=== PATIENT | female | born 2005 | race Caucasian/White ===

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

== ENCOUNTER 2024-10-26 19:10 | Emergency (ER) | payer OTHER ==
[~2024-10-26] VITALS: Ht 154.9 cm; Wt 72.6 kg
[~2024-10-26 19:10] MED LIST changes: +DOXYLAMINE-PYR1 EAC1 PO; +PROMETHAZINE12.5 M1 PO
[2024-10-26 19:18] VITALS: BP 120/78
== END 2024-10-26 20:18 | disposition home or self-care (01) ==
LOC: ER 19:10
DX: O9A.213 Injury, poisoning and certain other consequences of external causes complicating pregnancy, third trimester (principal); R10.30 Lower abdominal pain, unspecified; Z3A.00 Weeks of gestation of pregnancy not specified; W18.30XA Fall on same level, unspecified, initial encounter
CPT/HCPCS: 99284

== ENCOUNTER → 2024-10-30 | Outpatient (CLI) | payer OTHER | LOC: LAB SHORT 15:00 → LAB 15:00 | DX: O09.90 Supervision of high risk pregnancy, unspecified, unspecified trimester (principal); Z3A.00 Weeks of gestation of pregnancy not specified | CPT/HCPCS: 87081; 87150 ==

== ENCOUNTER 2024-11-20 08:00 | Inpatient (IN) | payer OTHER ==
[2024-11-20] VITALS (18 sets, daily range): BP systolic 113–177; BP diastolic 63–97
[~2024-11-20] VITALS: Ht 154.9 cm; Wt 74.4 kg
[2024-11-20] MEDS ORDERED: FentaNYL Citrate 50 MCG/ML 2 ML Injection IV PRN (08:20)
[2024-11-20] MEDS ORDERED: ePHEDrine Sulfate 50 MG/ML 1ML Injection XX PRN (08:25)
[2024-11-20] MEDS ORDERED: Methylergonovine Maleate 0.2MG / ML 1ML Amp IM PRN ×2 (08:25→09:50)
[2024-11-20] MEDS ORDERED: Ondansetron HCl 2 MG / ML 2ML Vial IV PRN (08:25)
[2024-11-20] MEDS ORDERED: OXYTOCIN/RINGER'S LACTATE 500 ML IV PRN (08:25)
[2024-11-20] MEDS ORDERED: Tranexamic Acid 100 ML IV SCH (08:25)
[2024-11-20] MEDS ORDERED: Calcium Carbonate 500 MG Tab Chew PO SCH (08:25)
[2024-11-20] MEDS ORDERED: Misoprostol 200 MCG Tab BC PRN (08:25)
[2024-11-20] MEDS ORDERED: Lactated Ringer's 1,000 ML IV PRN (08:25)
[2024-11-20] MEDS ORDERED: Lactated Ringer's 1,000 ML IV SCH ×3 (08:25→09:50)
[2024-11-20] MEDS ORDERED: FentaNYL 2mcg/ml-Bup 0.1% Epd 250 ML EPI PRN (08:25)
[2024-11-20] MEDS ORDERED: Misoprostol 200 MCG Tab PR PRN (08:25)
[2024-11-20] MEDS ORDERED: Acetaminophen 500 MG Tab PO PRN (08:25)
[2024-11-20] MEDS ORDERED: Oxytocin 10 Unit / ML Vial IM PRN (08:25)
[2024-11-20] MEDS ORDERED: Carboprost Tromethamine 250 MCG/ML 1ML Amp IM PRN (08:25)
[2024-11-20] MEDS ORDERED: OXYTOCIN/RINGER'S LACTATE 500 ML IV ONE (08:28)
[2024-11-20 08:39] LABS: BASOPHILS ABSOLUTE AUTO 0.04 K/mm3 (0.00-0.23); BASOPHILS PERCENT AUTO 0 % (0-2); EOSINOPHILS ABSOLUTE AUTO 0.05 K/mm3 (0.00-0.68); EOSINOPHILS PERCENT AUTO 0 % (0-6); Hematocrit 35.3 % (33.0-51.0); Hemoglobin 11.3 g/dL (11.5-16.0); IMMATURE GRAN ABSOLUTE AUTO 0.04 K/mm3 (0.00-0.10); IMMATURE GRAN PERCENT AUTO 0 % (0-1); LYMPHOCYTES ABSOLUTE AUTO 3.31 K/mm3 (0.84-5.20); LYMPHOCYTES PERCENT AUTO 29 % (21-46); MONOCYTES ABSOLUTE AUTO 0.87 K/mm3 (0.16-1.47); MONOCYTES PERCENT AUTO 8 % (4-13); Mean Corpuscular Volume 75 fL (80-100); Mean Platelet Volume 10.8 fL (9.1-12.4); NEUTROPHILS ABSOLUTE AUTO 6.98 K/mm3 (1.96-9.15); NEUTROPHILS PERCENT AUTO 62 % (41-73); Platelet Count 335 K/mm3 (150-400); RDW Coefficient Variation 15.3 % (11.7-14.2); RDW Standard Deviation 40.9 fL (35.1-46.3); White Blood Cell Count 11.29 K/mm3 (4.00-11.30)
[2024-11-20] MEDS ORDERED: Acetaminophen 325 MG TABLET PO PRN (09:45)
[2024-11-20] MEDS ORDERED: Docusate Sodium 100 MG Cap PO PRN (09:45)
[2024-11-20] MEDS ORDERED: Lanolin Cream TOP PRN (09:50)
[2024-11-20] MEDS ORDERED: Witch Hazel/Glycerin PADS TOP PRN (09:50)
[2024-11-20] MEDS ORDERED: Ibuprofen 400 MG Tab PO PRN (09:50)
[2024-11-20] MEDS ORDERED: Benzocaine Topical Anesthetic Spray 60GM TOP PRN (09:50)
[2024-11-20] MEDS ORDERED: FLU VACC TS2024-25(6MOS UP)/PF 45 MCG/0.5 ML SYRINGE IM SCH (09:50)
[2024-11-20] MEDS ORDERED: Oxytocin 10 Unit / ML Vial IM ONE (09:55)
[2024-11-20] MEDS ORDERED: OXYTOCIN/RINGER'S LACTATE 500 ML IV SCH (09:55)
--- NOTE | 2024-11-20 10:58 | NUR ---
UP SHOWERED BED CHANGED
[2024-11-21 03:48] VITALS: BP 114/58
[2024-11-21] MEDS ORDERED: Prenatal Vit/FE Fumarate/FA 1 Tab PO SCH (09:00)
[2024-11-21 09:09] VITALS: BP 130/75
--- NOTE | 2024-11-21 11:18 | NUR ---
1000 discharge instructions given. parents denie any further questions or concerns. 1106, hugs removed and bands matched. all vitals for mother and within normal limits at discharge.,
[2024-11-21 11:27] VITALS: BP 127/83
== END 2024-11-21 11:30 | disposition home or self-care (01) | DRG 807 ==
LOC: OBS 08:00 → BC 08:04 → OBS 08:15 → BC 08:17
PROVIDERS: ADMIT Advanced Practice Midwife
PROC: 10E0XZZ Delivery of Products of Conception, External Approach (ICD-10-PCS; principal; 2024-11-20)
DX: O99.334 Smoking (tobacco) complicating childbirth (principal); Z37.0 Single live birth; F17.200 Nicotine dependence, unspecified, uncomplicated; Z3A.39 39 weeks gestation of pregnancy; F12.90 Cannabis use, unspecified, uncomplicated; O69.81X0 Labor and delivery complicated by cord around neck, without compression, not applicable or unspecified
CPT/HCPCS: 36415; 85025; 86850; 86900; 86901; A9270

== ENCOUNTER 2025-10-25 08:55 | Emergency (ER) | payer OTHER ==
[~2025-10-25] VITALS: Ht 154.9 cm; Wt 65.8 kg
[2025-10-25] MEDS ORDERED: NS 1,000 ML IV SCH (09:40)
[2025-10-25] MEDS ORDERED: Ondansetron HCl 2 MG / ML 2ML Vial IV ONE (09:45)
[2025-10-25] MEDS ORDERED: Ketorolac Tromethamine 15mg Vial IV ONE (09:45)
[2025-10-25 09:57] LABS: BASOPHILS ABSOLUTE AUTO 0.05 K/mm3 (0.00-0.23); BASOPHILS PERCENT AUTO 1 % (0-2); EOSINOPHILS ABSOLUTE AUTO 0.07 K/mm3 (0.00-0.68); EOSINOPHILS PERCENT AUTO 1 % (0-6); Hematocrit 39.1 % (33.0-51.0); Hemoglobin 13.2 g/dL (11.5-16.0); IMMATURE GRAN ABSOLUTE AUTO 0.01 K/mm3 (0.00-0.10); IMMATURE GRAN PERCENT AUTO 0 % (0-1); LYMPHOCYTES ABSOLUTE AUTO 2.07 K/mm3 (0.84-5.20); LYMPHOCYTES PERCENT AUTO 34 % (21-46); MONOCYTES ABSOLUTE AUTO 0.54 K/mm3 (0.16-1.47); MONOCYTES PERCENT AUTO 9 % (4-13); Mean Corpuscular HGB Conc 33.8 g/dL (31.5-36.5); Mean Corpuscular Volume 84 fL (80-100); NEUTROPHILS ABSOLUTE AUTO 3.29 K/mm3 (1.96-9.15); NEUTROPHILS PERCENT AUTO 55 % (41-73); NRBC ABSOLUTE 0.00 K/mm3 (0.00-0.02); NRBC Auto 0.0 /100 WBC (0.0-0.2); Platelet Count 275 K/mm3 (150-400); RDW Coefficient Variation 14.3 % (11.7-14.2); RDW Standard Deviation 44.0 fL (35.1-46.3)
[2025-10-25 10:19] LABS: Alanine Aminotransfer (ALT/SGP 83 U/L (12-78); Albumin, Blood 3.7 g/dL (3.4-5.0); Albumin/Globulin Ratio 1.0 (0.8-1.8); Anion Gap 7 mmol/L (3-11); Aspartate Aminotrans (AST/SGOT 29 U/L (12-37); Beta HCG, Quantitative, Serum <1 mIU/mL (0-3); Bilirubin, Total 0.4 mg/dL (0.1-1.0); Blood Urea Nitrogen 9 mg/dL (8-24); CO2, Blood 24 mmol/L (21-32); Calcium, Blood 9.0 mg/dL (8.5-10.1); Chloride, Blood 109 mmol/L (98-108); Creatinine, Blood 0.77 mg/dL (0.40-1.00); Globulin, Blood 3.8 g/dL (2.2-4.0); Glucose, Blood 103 mg/dL (70-99); Potassium, Blood 3.4 mmol/L (3.5-5.5); Sodium, Blood 137 mmol/L (136-145); Total Protein, Blood 7.5 g/dL (6.4-8.2)
[2025-10-25 11:17] LABS: Source, Urine Clean Catch
[2025-10-25 11:35] LABS: Bilirubin, Urine Neg (Neg); Color, Urine Yellow (P-Yellow); Glucose Qualitative, Urine Neg (Neg); Ketones, Urine Neg (Neg); Leukocyte Esterase, Urine 1+ (Neg); Protein, Urine 2+ (Neg); Specific Gravity, Urine 1.005 (1.003-1.022); Urobilinogen, Urine 1+ (Normal)
[2025-10-25 11:55] LABS: Red Blood Cells, Urine 0-2 /hpf (0-2)
[2025-10-25] MEDS ORDERED: Diflucan150 MG PO (16:05)
[2025-10-25] MEDS ORDERED: OMEP20ER PO (16:05)
[2025-10-25] MEDS ORDERED: MIRALAX17 GM PO (16:05)
[2025-10-25] MEDS ORDERED: HYDR1TAB94 PO (16:05)
[2025-10-25] MEDS ORDERED: BISA5EC PO (16:05)
[2025-10-25] MEDS ORDERED: PROM25 PO (16:08)
[2025-10-25 16:36] VITALS: BP 112/70
== END 2025-10-25 16:40 | disposition home or self-care (01) ==
LOC: ER 08:55
PROVIDERS: Student in an Organized Health Care Education/Training Program
DX: K59.00 Constipation, unspecified (principal)
CPT/HCPCS: 74177; 80053; 81001; 83690; 84702; 85025; 87086; 96361; 96374-59; 96375; 99284-25; A9270; J1885; J2405; J7030; Q9967